=== PATIENT | male | born 1980 | race Caucasian/White ===

== ENCOUNTER 2018-01-19 11:49 | Emergency (ER) | payer OTHER ==
[2018-01-19 11:49] VITALS: BMI 28.3
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
[2018-01-19 13:03] VITALS: RESP 19; TEMP 98
--- NOTE | 2018-01-19 13:21 | RAD ---
PROCEDURE: Right Ankle Radiographs. HISTORY: injury COMPARISON: None available. FINDINGS: BONES: No acute displaced fracture. JOINTS: No dislocation. SOFT TISSUES: Soft tissue swelling. No evidence of radiopaque foreign body. OTHER FINDINGS: None. IMPRESSION: Soft tissue swelling. No acute displaced fracture or dislocation identified. If symptoms persist or if there is clinical concern, x-ray follow-up in 7-10 days should be considered.
[2018-01-19 13:50] VITALS: BP 129/53; PULSE 77; O2SAT 100
== END 2018-01-19 13:48 | disposition home or self-care (01) ==
LOC: ED 11:49
DX: S99.911A Unspecified injury of right ankle, initial encounter (principal); W17.89XA Other fall from one level to another, initial encounter; Y93.55 Activity, bike riding; F17.210 Nicotine dependence, cigarettes, uncomplicated